=== PATIENT | male | born 1955 | race Two or more races ===

== ENCOUNTER → 2024-05-25 | Outpatient (CLI) | payer MEDICARE, BC, SELFPAY ==
[2024-05-25 08:36] LABS: Glucose Estimated Average 111 mg/dL (80-131); Hemoglobin A1C 5.5 % Hgb (4.8-6.0)
[2024-05-25 08:50] LABS: Alanine Aminotransferase 13 U/L (10-49); Albumin, Serum 3.9 gm/dL (3.4-4.8); Albumin/Globulin Ratio 1.3 (1.2-2.2); Alkaline Phosphatase 73 U/L (46-116); Anion Gap 8 (7-16); Aspartate Amino Transferase 17 U/L (0-34); BUN/Creatinine Ratio 18 Ratio (12-20); Blood Urea Nitrogen 22 mg/dL (9-23); Calcium 9.2 mg/dL (8.3-10.6); Calcium (Corrected) 9.3 mg/dL (8.5-10.1); Carbon Dioxide 28.1 mMol/L (20.0-31.0); Chloride 105 mMol/L (98-107); Creatinine (Component) 1.2 mg/dL (0.6-1.3); Globulin 2.9 gm/dL (2.3-3.5); Glucose 107 mg/dL (74-106); Osmolality,Calculated 284 (275-295); Potassium 4.3 mMol/L (3.4-5.1); Sodium 141 mMol/L (136-145); Total Protein 6.8 gm/dL (5.7-8.2); eGFR > 60 See Note
== END | disposition home or self-care (01) ==
LOC: COPL 07:35
PROVIDERS: PCP Family Medicine; Referring Provider Family Medicine; Visit Provider Family Medicine
DX: E11.9 Type 2 diabetes mellitus without complications (principal); I10 Essential (primary) hypertension
CPT/HCPCS: 36415; 80053; 83036

== ENCOUNTER → 2024-06-14 | Outpatient (BNVA) | payer MEDICARE, BC, SELFPAY | END | disposition home or self-care (01) | PROVIDERS: PCP Family Medicine; Referring Provider Family Medicine; Visit Provider Urology | DX: N40.1 Benign prostatic hyperplasia with lower urinary tract symptoms (principal); N13.8 Other obstructive and reflux uropathy; N32.81 Overactive bladder; E11.9 Type 2 diabetes mellitus without complications; I10 Essential (primary) hypertension; I25.10 Atherosclerotic heart disease of native coronary artery without angina pectoris; E66.9 Obesity, unspecified; Z68.41 Body mass index [BMI] 40.0-44.9, adult; E78.00 Pure hypercholesterolemia, unspecified | CPT/HCPCS: 81003; 99212; G0463 ==

== ENCOUNTER 2024-08-02 06:36 | Day surgery (SDC) | payer MEDICARE, BC, SELFPAY ==
[2024-07-28 16:11] VITALS: BMI 41.1
--- NOTE | 2024-07-29 07:34 | EKG_ITS ---
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
[2024-07-29 08:40] LABS: Basophils # (Auto) 0.1 Thou/mm3 (0.0-0.2); Basophils % (Auto) 1 % (0-2.5); Eosinophils # (Auto) 0.2 Thou/mm3 (0.0-0.5); Eosinophils % (Auto) 5 % (0-10); Hematocrit 37.4 % (41.0-53.0); Hemoglobin 12.7 g/dL (13.5-16.0); Immature Granulocytes % (Auto) 0 % (0-0); Immature Granulocytes Auto 0.01 Thou/mm3 (0.00-0.00); Lymphocytes # (Auto) 1.2 Thou/mm3 (1.0-4.8); Lymphocytes % (Auto) 23 % (10-50); Mean Corpuscular Hemoglobin 30.2 pg (25.0-35.0); Mean Corpuscular Volume 89 fL (80-100); Monocytes # (Auto) 0.4 Thou/mm3 (0.0-0.8); Monocytes % (Auto) 7 % (0-12); Neutrophils # (Auto) 3.3 Thou/mm3 (1.8-7.7); Neutrophils % (Auto) 64 % (37-80); Nucleated Red Blood Cell % 0 /100 WBC (0); Platelet Count 217 Thou/mm3 (140-440); RDW Standard Deviation 43.2 fL (35.1-43.9); Red Blood Count 4.21 Miln/mm3 (4.50-5.90); White Blood Count 5.2 Thou/mm3 (3.8-10.6)
[2024-07-29 09:00] LABS: Anion Gap 10 (7-16); BUN/Creatinine Ratio 14 Ratio (12-20); Blood Urea Nitrogen 17 mg/dL (9-23); Calcium 8.8 mg/dL (8.3-10.6); Carbon Dioxide 26.9 mMol/L (20.0-31.0); Chloride 107 mMol/L (98-107); Creatinine (Component) 1.2 mg/dL (0.6-1.3); Glucose 115 mg/dL (74-106); Osmolality,Calculated 289 (275-295); Potassium 4.2 mMol/L (3.4-5.1); Sodium 144 mMol/L (136-145); eGFR > 60 See Note
[2024-07-29 10:03] LABS: Partial Thromboplastin Time 28.9 Seconds (22.0-36.0); Prothrombin Time 11.4 Seconds (9.0-12.2)
[2024-08-02] VITALS (10 sets, daily range): BP systolic 121–167; BP diastolic 63–97; PULSE 88–106; RESP 12–22; TEMP 36.3–36.6; O2SAT 95–98
[2024-08-02] MEDS: VANCOMYCIN/WATER 1GM IVPB 200 ML IV (08:45)
--- NOTE | 2024-08-02 09:04 | PC.NURSE ---
0840 patient is awake, alert, breathing unlabored, s/p pacemaker exchange, dressing to left chest dry wiht no bleeding, report received from Jose FINE, patiento to have vancomycin antibitic infused in recovery and be discharged home after antibiotic completed. Keflex PO antibiotic will be prescribed by MD to take at home.
--- NOTE | 2024-08-02 10:56 | PC.NURSE ---
1040 patient is awake, alert, breathing unlabored, dressing dry with no bleeding, patient able to tolerate food tray with no nausea or vomiting, able to ambulate to bathroom and void, meets discharge criteria, discharge instructions given to patient and spouse, patient discharged home in wheelchair with all belongings. Vancomycin 1gram completed. 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
--- NOTE | 2024-08-03 07:24 | ESOP_ITS ---
RE: LUTHER FRIED : 1955 DATE OF OPERATION: 08/02/2024 PROCEDURES PERFORMED: 1. Removal and replacement of dual-chamber permanent pacemaker generator. CPT code 97893. 2. Conscious sedation x30 minutes duration. DIAGNOSES: Status post pacemaker implantation, complete heart block, pacer dependency, elective replacement indicated for battery depletion. HISTORY AND INDICATIONS: Mr. Luther Fried is a 69-year-old male with a history of complete heart block, hypertension, syncopal episodes with pacemaker implantation in 2016, now showed elective replacement indicators for pacemaker removal and replacement. The patient is pacemaker dependent. He has dual-chamber permanent pacemaker generator removal and replacement recommended. Class 1 indication for permanent pacing because of complete heart block and pacemaker dependence. DESCRIPTION OF PROCEDURE: The patient brought to cardiac catheterization laboratory. Informed consent was obtained. Conscious sedation was given with 2 mg of Versed, 100 mcg of fentanyl.__ given 1% Xylocaine for local anesthesia. Linear incision made above the generator, pocket was opened. Capsule was _dual-chamber pacemaker generator was successfully explanted, which was implanted in 2016 , The leads were attached to the new pacemaker generator by [employer] and the new generator is MRI safe was placed in the pocket. Subcutaneous tissue closed using 2-0 chromic continuous sutures. Skin was closed using jay. The patient received 1 gram of Ancef pre-procedure and 1 gram of vancomycin post procedure. The patient had no complications. Estimated blood loss less than 5 mL. SUMMARY: Successful removal and replacement of dual-chamber pacemaker generator under local anesthesia, conscious sedation, no complications. The thresholds are as follows: The atrial threshold is 3 mV _ threshold 0.8 volts, ventricle 12 mV, R waves threshold 0.9 volts. Lead impendence atrium 484, ventricle 606. The generator that is implanted today is [employer]. [employer] MRI BRIS1, model number is L311. Serial number is [id number]. The leads are implanted on 07/26/2015. The RV lead is 53 cm length, 4136, [employer], serial number [id number]. The ventricle lead is implanted again in 2015, model number is 4B137, serial number is [id number]. The device that is removed is [employer]. Model number 301, serial number is [id number] that was implanted on 07/26/2015. cc: Jonah Mackay MD [place] DT: 08:38:16 TT: 09:09:00 Ref: [id number] - TID: [id number] MTDD
== END 2024-08-02 10:40 | disposition home or self-care (01) ==
PROVIDERS: PCP Family Medicine; Referring Provider Internal Medicine Cardiovascular Disease; Visit Provider Internal Medicine Cardiovascular Disease
PROC: 0JPT0PZ Removal of Cardiac Rhythm Related Device from Trunk Subcutaneous Tissue and Fascia, Open Approach (ICD-10-PCS; CPT 33228; principal; 2024-08-02 07:30)
DX: Z45.010 Encounter for checking and testing of cardiac pacemaker pulse generator [battery] (principal); I44.2 Atrioventricular block, complete; I10 Essential (primary) hypertension; Z01.810 Encounter for preprocedural cardiovascular examination
CPT/HCPCS: 33228; 36415; 80048; 85025; 85610; 85730; 93005; 99152; 99153; A4649; C1785; C1898; J3372

== ENCOUNTER → 2024-08-25 | Outpatient (CLI) | payer MEDICARE, BC, SELFPAY ==
[2024-08-25 09:47] LABS: Glucose Estimated Average 108 mg/dL (80-131); Hemoglobin A1C 5.4 % Hgb (4.8-6.0)
== END | disposition home or self-care (01) ==
LOC: COPL 08:31
PROVIDERS: PCP Family Medicine; Referring Provider Family Medicine; Visit Provider Family Medicine
DX: E11.9 Type 2 diabetes mellitus without complications (principal); I10 Essential (primary) hypertension
CPT/HCPCS: 36415; 83036

== ENCOUNTER → 2024-10-27 | Outpatient (CLI) | payer MEDICARE, BC, SELFPAY ==
[2024-10-27 11:09] LABS: Alanine Aminotransferase 10 U/L (10-49); Albumin, Serum 4.2 gm/dL (3.4-4.8); Albumin/Globulin Ratio 1.5 (1.2-2.2); Alkaline Phosphatase 75 U/L (46-116); Anion Gap 8 (7-16); Aspartate Amino Transferase 19 U/L (0-34); BUN/Creatinine Ratio 15 Ratio (12-20); Bilirubin,Total 0.8 mg/dL (0.3-1.2); Blood Urea Nitrogen 19 mg/dL (9-23); Calcium 10.2 mg/dL (8.3-10.6); Calcium (Corrected) 10.2 mg/dL (8.5-10.1); Carbon Dioxide 25.0 mMol/L (20.0-31.0); Chloride 107 mMol/L (98-107); Creatinine (Component) 1.3 mg/dL (0.6-1.3); Globulin 2.8 gm/dL (2.3-3.5); Glucose 108 mg/dL (74-106); Osmolality,Calculated 282 (275-295); Potassium 4.5 mMol/L (3.4-5.1); Sodium 140 mMol/L (136-145); Total Protein 7.0 gm/dL (5.7-8.2); eGFR 59 See Note
== END | disposition home or self-care (01) ==
LOC: COPL 10:00
PROVIDERS: PCP Family Medicine; Referring Provider Family Medicine; Visit Provider Family Medicine
DX: R60.0 Localized edema (principal); I95.2 Hypotension due to drugs
CPT/HCPCS: 36415; 80053

== ENCOUNTER → 2024-12-08 | Outpatient (CLI) | payer MEDICARE, BC, SELFPAY ==
[2024-12-08 11:42] LABS: Prostate Specific Antigen 1.50 ng/mL (0-4.00)
== END | disposition home or self-care (01) ==
LOC: COPL 09:47
PROVIDERS: PCP Family Medicine; Referring Provider Urology; Visit Provider Urology
DX: N40.1 Benign prostatic hyperplasia with lower urinary tract symptoms (principal)
CPT/HCPCS: 36415; 84153

== ENCOUNTER → 2024-12-16 | Outpatient (BNVA) | payer MEDICARE, BC, SELFPAY | END | disposition home or self-care (01) | PROVIDERS: PCP Family Medicine; Referring Provider Family Medicine; Visit Provider Urology | DX: N40.1 Benign prostatic hyperplasia with lower urinary tract symptoms (principal); N13.8 Other obstructive and reflux uropathy; N32.81 Overactive bladder; E11.9 Type 2 diabetes mellitus without complications; I10 Essential (primary) hypertension; I25.10 Atherosclerotic heart disease of native coronary artery without angina pectoris; E66.9 Obesity, unspecified; Z71.3 Dietary counseling and surveillance; Z68.41 Body mass index [BMI] 40.0-44.9, adult | CPT/HCPCS: 81003; 99212; G0463 ==

== ENCOUNTER → 2025-01-06 | Outpatient (CLI) | payer MEDICARE, BC, SELFPAY ==
[2025-01-06 11:15] LABS: Glucose Estimated Average 120 mg/dL (80-131); Hemoglobin A1C 5.8 % Hgb (4.8-6.0)
[2025-01-06 11:33] LABS: Alanine Aminotransferase 11 U/L (10-49); Albumin, Serum 4.4 gm/dL (3.4-4.8); Albumin/Globulin Ratio 1.6 (1.2-2.2); Alkaline Phosphatase 74 U/L (46-116); Anion Gap 9 (7-16); Aspartate Amino Transferase 19 U/L (0-34); BUN/Creatinine Ratio 18 Ratio (12-20); Bilirubin,Total 0.6 mg/dL (0.3-1.2); Blood Urea Nitrogen 20 mg/dL (9-23); Calcium 9.5 mg/dL (8.3-10.6); Calcium (Corrected) 9.5 mg/dL (8.5-10.1); Carbon Dioxide 27.0 mMol/L (20.0-31.0); Chloride 108 mMol/L (98-107); Creatinine (Component) 1.1 mg/dL (0.6-1.3); Globulin 2.7 gm/dL (2.3-3.5); Glucose 110 mg/dL (74-106); Osmolality,Calculated 290 (275-295); Potassium 4.3 mMol/L (3.4-5.1); Sodium 144 mMol/L (136-145); Total Protein 7.1 gm/dL (5.7-8.2); eGFR > 60 See Note
== END | disposition home or self-care (01) ==
PROVIDERS: PCP Family Medicine; Referring Provider Family Medicine; Visit Provider Family Medicine
DX: I95.2 Hypotension due to drugs (principal); E11.9 Type 2 diabetes mellitus without complications
CPT/HCPCS: 36415; 80053; 83036